=== PATIENT | female | born 1950 | race Two or more races ===

== ENCOUNTER 2019-07-24 10:38 | Outpatient (CLI) | payer OTHER ==
[~2019-07-24 10:38] MED LIST: NEURONTIN300 MG PO; TRAMADOL HCL50 MG PO
== END 2019-07-24 10:49 | disposition home or self-care (01) ==
LOC: NUCLEAR 10:38
PROVIDERS: ATTEND Internal Medicine Cardiovascular Disease
DX: I73.9 Peripheral vascular disease, unspecified (principal); I87.2 Venous insufficiency (chronic) (peripheral)

== ENCOUNTER 2019-08-16 10:20 | Outpatient (CLI) | payer OTHER | END 2019-08-16 10:28 | disposition home or self-care (01) | LOC: NUCLEAR 10:20 | PROVIDERS: ATTEND Internal Medicine Cardiovascular Disease | DX: I73.9 Peripheral vascular disease, unspecified (principal) ==

== ENCOUNTER 2019-08-16 11:56 | Outpatient (CLI) | payer OTHER | END 2019-08-16 12:02 | disposition home or self-care (01) | LOC: MAMO-SONO 11:56 | DX: Z12.31 Encounter for screening mammogram for malignant neoplasm of breast (principal); N60.21 Fibroadenosis of right breast; N60.22 Fibroadenosis of left breast ==